=== PATIENT | male | born 1945 | race Caucasian/White ===

== ENCOUNTER 2016-11-08 06:36 | Day surgery (SDC) | payer MEDICARE ==
[~2016-11-08] VITALS: Ht 190.5 cm; Wt 115.7 kg
[2016-11-08] MEDS ORDERED: NIFEDIPINE ER60 MG PO (07:39)
[2016-11-08] MEDS ORDERED: PHOSLO667 MG PO (07:39)
[2016-11-08] MEDS ORDERED: METOPROLOL TAR100 M1 PO (07:39)
[2016-11-08 07:40] LABS: BASOPHILS 0.3 % (0.0-2.0); EOSINOPHILS 2.4 % (0-7); HEMATOCRIT 37.9 % (42.0-54.0); HEMOGLOBIN 12.6 g/dL (13.5-17.5); IMMATURE GRANULOCYTES 0.2 % (0-5); LYMPHOCYTES 33.9 % (15-50); MCH 33.2 pg (26.0-34.0); MCHC 33.2 g/dL (31.0-37.0); MCV 99.7 fL (80.0-100.0); MEAN PLATELET VOLUME 10.9 fL (7.4-10.4); MONOCYTES 6.1 % (2-11); NEUTROPHILS 57.1 % (40-80); PLATELET COUNT 182 10x3/uL (130-400); RDW 12.8 % (11.5-14.5); WBC 11.5 10x3/uL (4.8-10.8)
[2016-11-08] MEDS ORDERED: HYDROCODONE-APA1 TAB PO ×2 (07:40→12:20)
[2016-11-08 07:43] LABS: ANION GAP 18.3 mmol/L (8-16); CALCIUM 7.6 mg/dL (8.5-10.1); CARBON DIOXIDE 24.7 mmol/L (21.0-32.0); CREATININE - SERUM 7.2 mg/dL (0.6-1.3)
[2016-11-08 07:49] LABS: APTT 30.9 SECONDS (22.8-39.4); INR 1.11 (0.85-1.17); PROTIME 14.1 SECONDS (11.6-15.0)
[2016-11-08 07:51] VITALS: Ht 190.5 cm; Wt 115.7 kg
--- NOTE | 2016-11-08 10:56 | NUR ---
PREPPED AND DRAPED FOR FISTULA CREATION
--- NOTE | 2016-11-08 13:47 | NUR ---
DR BANGURA HERE TALKING WITH PT
--- NOTE | 2016-11-08 13:48 | NUR ---
IV DC WITH CATHER TIP INTACT
--- NOTE | 2016-11-13 14:16 | CN ---
PATIENT NAME:GANESH MELLO MEDICAL RECORD: [id number] : 45 LOCATION:[facility] ADMIT DATE: ACCOUNT: [id number] CONSULTING PHYSICIAN: GERRI BANGURA MD REFERRING PHYSICIAN: AVNI GARCIA MD DATE OF CONSULTATION: 11/08/2016 HISTORY OF PRESENT ILLNESS: A 71-year-old gentleman with history of end-stage renal disease status post surgery this morning via Dr. Mcadams. He was noted to have ECG changes with PVCs. Actually talking to his , this has been a problem for several years typically. He first noticed when he was in [facility] for surgery. These are entirely asymptomatic and has never been told he has any cardiovascular history. We are asked to see him concerning his cardiovascular status. PAST MEDICAL HISTORY: Includes: 1. History of renal insufficiency. 2. Obstructive pulmonary disease. 3. Hypertension. 4. PVCs described above. MEDICATIONS: Include nifedipine 60 mg p.o. daily, [place] 10/325 daily, Diazepam 5 t.i.d. p.r.n., metoprolol 50 b.i.d. SOCIAL HISTORY: Smoker, he is able to take care of his ADLs. REVIEW OF SYSTEMS: The patient reports easy bruising but reports no swollen glands. The patient reports no fever, no night sweats, no significant weight gain, no significant weight loss. No significant exercise tolerance. The patient reports no dry eyes, no irritation, no vision change. Patient reports no difficulty hearing and no ear pain. Patient reports no frequent nose bleeds or nose and sinus problems. Patient reports on arm pain on exertion. No shortness of breath while lying down. No history of heart murmur. Patient reports no cough, no wheezing or coughing up blood. Patient reports no abdominal pain, no vomiting. Normal appetite. No diarrhea and not vomiting blood. No nausea and no constipation. Patient reports no incontinence. No difficulty urinating. No hematuria. No increased frequency. Patient reports no muscle aches. No weakness, no arthralgias, no back pain. No swelling of the extremities. Patient reports no abnormal mole, no jaundice, no rashes. Reports no loss of consciousness. No weakness and no numbness. No seizures, dizziness, or headaches. The patient reports no depression, no sleep disturbance, feeling safe in a relationship and no alcohol abuse. Patient reports on fatigue. Reports no runny nose or sinus pressure. No itching, no hives, and no frequent sneezing. PHYSICAL EXAMINATION: GENERAL: Elderly gentleman in no acute distress. HEENT: Normocephalic, atraumatic. NECK: No JVD or bruit. HEART: Regular. LUNGS: العلي clear. ABDOMEN: Soft, nontender. EXTREMITIES: Pulses are preserved, 2+ with no edema. IMPRESSION: Suspect ECG changes with premature ventricular contractions CONSULT REPORT [id number] GANESH MELLO secondary to current surgery, asymptomatic, these are unifocal with appropriate compensatory physiologic pulse. No contraindication to discharge from a cardiac standpoint. TRANSINT:[id number] Voice Confirmation ID: [id number] DOCUMENT ID: [id number] GERRI BANGURA MD at 1416 CC: [id number] DICTATION DATE: 11/08/16 1334 CREATIVE PRODUCER: 11/08/16 1606 [facility] 11/08/16 [address] [place] [address]
--- NOTE | 2016-12-03 11:25 | OP ---
PATIENT NAME: GANESH TRAORE MEDICAL RECORD: [id number] :45 LOCATION:[facility] ADMISSION DATE: SURGEON: FRANKI RICHARDSON MD DATE OF OPERATION: 11/08/2016 PREOPERATIVE DIAGNOSES: End-stage renal disease on chronic hemodialysis via right internal jugular tunneled dialysis catheter and multiple failed prior dialysis AV fistula attempts. POSTOPERATIVE DIAGNOSES: End-stage renal disease on chronic hemodialysis via right internal jugular tunneled dialysis catheter and multiple failed prior dialysis AV fistula attempts. OPERATION PERFORMED: Laparoscopic implantation of a peritoneal dialysis catheter and in addition, creation of a left radiocephalic Merari type arteriovenous fistula. SURGEON: Franki Richardson MD ANESTHESIA: General endotracheal per LINUX ARCHITECT. PREOPERATIVE NOTE: Mr. Traore is a 71-year-old white male patient on dialysis. Referred to me by Dr. Tan for dialysis access. The patient wants to do a home ambulatory peritoneal dialysis and is to have a peritoneal catheter implanted. He also has had a couple of failed attempts at a brachiocephalic and proximal radial artery cephalic arterial venous fistula and still needs an AV fistula for backup for his peritoneal. We hope to accomplish that in addition to implanting his PD catheter today. DESCRIPTION OF PROCEDURE: Under general endotracheal anesthesia per LINUX ARCHITECT, the patient was prepped and draped in a sterile manner and the abdomen was accessed through a small incision in the left upper quadrant with an Optiview XL 5-mm port with 0-degree 5-mm scope within it. Pneumoperitoneum was established and an additional 5-mm port was placed in the left lower quadrant for instrumentation. An incision was placed to the right of the umbilicus and just below it and through that incision, a needle and guidewire were inserted through the abdominal wall and a peelaway dilator introducer was placed. A right-sided swan neck dual cuff coil catheter was inserted and placed in the pelvis and the innermost of the 2 Dacron felt cuffs were placed just at the posterior rectus peritoneum level just barely visible from within the abdomen. Note, the patient had had prior abdominal operations, but had essentially no intra-abdominal adhesions. He does have a very floppy transverse colon which falls well down into his pelvis and there was a floppy sigmoid colon there as well. There is, however, almost no omentum and epiploic fat. The new catheter was then placed in a laterally directed subcutaneous tunnel and through a new exit site leaving the most superficial of the 2 Dacron felt cuffs in the subcutaneous tract. The catheter was irrigated and free flow of fluid confirmed after which it was then heparin locked with heparin 100 units per cc clamped and capped. The insufflated carbon dioxide was allowed to escape and the laparoscopic instrumentation was removed. The incisions were then infiltrated with 0.25% Marcaine with epinephrine and closed with interrupted inverted 3-0 Vicryl and Dermabond glue. The catheter exit site was treated first with Dermabond glue and then Mastisol and quarter inch Steri-Strips were used to secure the catheter. Maxorb AG was then placed over the catheter exit OPERATIVE REPORT [id number] GANESH TRAORE J site and the other incisions and this held in place with Tegaderm and Cavilon skin prep. The catheter was then coiled and placed under a Medipore adhesive dressing. The patient was then reprepped and redraped to expose the left arm for surgery. I examined him with a proximal venous tourniquet in place and after application of nitroglycerin paste topically and found the patient had a good cephalic vein at the wrist and large radial artery and the cephalic vein appears to be patent and continuous with the median cubital vein and basilic vein, which is large. I opted to go ahead with a radiocephalic primary AV fistula rather than the graft or basilic vein translocation. A longitudinal incision was made and hemostasis was obtained discretely with electrocautery and the cephalic vein mobilized and controlled with vascular loops, tributaries were divided between 3-0 Vicryl ligatures. The patient's vein was treated with topical papaverine. The radial artery was then exposed. Branches divided with electrocautery and the vessels controlled with Silastic tapes. The vein was then clamped and divided distally, it was ligated there with 3-0 Vicryl. The end was shortened and bevelled and the vein was flushed and dilated with dilute heparin saline solution and additional topical papaverine was utilized. An end-to-side anastomosis between the vein and artery was then performed with continuous running 7-0 Prolene after flushing the artery proximally and distally with heparin as well. When completed, the suture line was hemostatic and with release of the occluding loops, there was excellent flow established almost immediately in the new fistula. Note that in addition to irrigating the vein before doing the anastomosis, I also explored it gently with coronary artery dilators and noted that I could easily pass a 3.5-mm coronary dilator through the cephalic vein up to almost the antecubital level. The wound was irrigated with Ancef/gentamicin solution and infiltrated sparingly with 0.25% Marcaine with epinephrine. The wound was also treated with an application of fibrillar hemostatic material which was subsequently removed with additional irrigation and the wound was closed with interrupted inverted 3-0 Vicryl and then running intracuticular 4-0 Monocryl and Dermabond glue. The incision was dressed with Maxorb Ag, Tegaderm and Cavilon skin prep. The patient was awakened and taken to the recovery room. Blood loss during the procedure was trivial and unreplaced and all sponges, instruments, and needles were accounted for. No drain was used and no surgical specimen was submitted for histopathology. The patient did have cardiac dysrhythmias, during the operation first and second degree block with PACs though he maintained a normal pressure. We will obtain a cardiology consultation and repeat a 12-lead EKG in the recovery room. PLAN: Unless there is a contraindication from cardiology, the patient will be discharged to home and to continue his home renal diet and medications. He is given a prescription for additional [place] 10/325 #20 one p.o. q. 4 hours p.r.n. pain. He is to have an appointment with [facility] peritoneal dialysis nurses in a week and he is to have an appointment scheduled to return to see me in the office in 2 weeks. He can leave the original operative dressings intact until he sees me at that time. TRANSINT:[id number] Voice Confirmation ID: [id number] DOCUMENT ID: [id number] OPERATIVE REPORT [id number] GANESH TRAORE JAMES MD at 1125 CC: DWAYNE HUBBARD MD, MORRO GODOY MD and AVNI TAN [id number] DICTATION DATE: 11/08/16 1252 FOUNDRY SUPERINTENDANT: 11/08/16 1527 [facility] 11/08/[address] [facility] [address] [place] [address]
== END 2016-11-08 14:30 | disposition home or self-care (01) ==
LOC: D.OPS 06:36
PROVIDERS: Internal Medicine Nephrology
DX: I12.0 Hypertensive chronic kidney disease with stage 5 chronic kidney disease or end stage renal disease (principal); E11.9 Type 2 diabetes mellitus without complications; F17.200 Nicotine dependence, unspecified, uncomplicated; M19.90 Unspecified osteoarthritis, unspecified site; Z99.2 Dependence on renal dialysis; T82.590A Other mechanical complication of surgically created arteriovenous fistula, initial encounter

== ENCOUNTER 2017-02-21 06:39 | Day surgery (SDC) | payer MEDICARE ==
[~2017-02-21] VITALS: Ht 193 cm; Wt 113.4 kg
--- NOTE | ~2017-02-21 | OP ---
PATIENT NAME: GANESH MELLO MEDICAL RECORD: [id number] :45 [facility] AD[facility] DATE: SURGEON: FRANKI RICHARDSON MD DATE OF OPERATION: 02/21/2017 REFERRING PHYSICIAN: Dr. Waqas Tan. PREOPERATIVE DIAGNOSIS: End-stage renal disease, and dependence upon hemodialysis, now with a functioning arteriovenous fistula, no longer requiring his HemoSplit tunneled dialysis catheter. Also, he has a peritoneal dialysis catheter, which he does not like, finds inconvenience and wants removed. DESCRIPTION OF PROCEDURE: Under general anesthesia with LMA per OSTOMY CARE NURSE, the patient is prepped and draped in sterile manner. A transverse incision was made over the palpable PD catheter in the right lower quadrant. Electrocautery was used as well as sharp dissection, the superficial cuff was located and freed from the surrounding subcutaneous tissues and the catheter cut in the external portion with a superficial cuff removed. Dissection deeper revealed that deeper the 2 cuffs within the substance of the rectus muscle and it was freed and the catheter removed. The defect was closed with 2 [id number] 0 Vicryl sutures. The wound was irrigated with Ancef/gentamicin solution and infiltrated with 0.5% Marcaine with epinephrine. Subcutaneous tissues were approximated with 3-0 Vicryl and the skin was closed with a running 4-0 Monocryl and Dermabond glue. It was later dressed with Maxorb Ag, Tegaderm and Cavilon skin prep. This covered also the old PD catheter exit site, which was adjacent and close to this incision. We turned our attention into the HemoSplit catheter. The skin and subcutaneous tissues surrounding the tract of the catheter were infiltrated with lidocaine with epinephrine and some Marcaine and a mt in the skin was made to allow forceps to pass alongside the catheter, blunt dissection was then used for most of the dissection; however, some electrocautery was also used to free the subcutaneous cuff. I noted some purulent matter within the catheter tunnel, superficial to the cuff and it was cultured for aerobic and anaerobic organisms. The catheter was removed and with the patient in reverse Trendelenburg position, pressure along the tract from the right internal jugular vein was held. The site was also closed with a purse-string 3-0 Vicryl suture, which will need to be removed in a few days. That wound was subsequently dressed with Maxorb Ag, Tegaderm and Cavilon skin prep. The patient was awakened and taken to the recovery room in stable condition. Blood loss was insignificant and unreplaced and all sponges, instruments, and needles were accounted for. No drain was used and no surgical specimen was sent for histopathology or gross inspection. We will arrange an appointment for Mr. Mello to see me in my office next week. He is to continue his usual dialysis schedule and his usual home medications and diet. He is given a prescription for 20 tablets of [place] 5/325. He can take one q. 4 hours p.r.n. for pain. TRANSINT:[id number] Voice Confirmation ID: [id number] DOCUMENT ID: [id number] OPERATIVE REPORT [id number] GANESH MELLO JAMES MD CC: [id number] DICTATION DATE: 02/21/17958 ACCOUNT ASSOCIATE: 02/21/171936 [facility] 02/21/17 [facility] [address] [place] [address]
[~2017-02-21 06:39] MED LIST: HYDROCODONE-APA1 TAB PO; METOPROLOL TAR100 M1 PO; NIFEDIPINE ER60 MG PO; PHOSLO667 MG PO
[2017-02-21] MEDS ORDERED: ZANTAC150 MG PO (07:23)
[2017-02-21] MEDS ORDERED: CALCIUM 500 + D1 TAB PO (07:23)
[2017-02-21 07:34] VITALS: Ht 193 cm; Wt 113.4 kg
[2017-02-21] MEDS ORDERED: VALIUM5 MG PO (07:41)
[2017-02-21 07:42] LABS: BASOPHILS 0.5 % (0-2); EOSINOPHILS 2.6 % (0-7); HEMATOCRIT 35.7 % (42.0-54.0); HEMOGLOBIN 11.7 g/dL (13.5-17.5); IMMATURE GRANULOCYTES 0.2 % (0-5); LYMPHOCYTES 38.6 % (15-50); MCH 32.6 pg (26.0-34.0); MCHC 32.8 g/dL (31.0-37.0); MCV 99.4 fL (80.0-100.0); MEAN PLATELET VOLUME 11.3 fL (7.4-10.4); MONOCYTES 5.7 % (2-11); NEUTROPHILS 52.4 % (40-80); PLATELET COUNT 193 10x3/uL (130-400); RBC 3.59 10x6/uL (4.20-6.10); RDW 13.9 % (11.5-14.5); WBC 8.6 10x3/uL (4.8-10.8)
[2017-02-21 07:48] LABS: APTT 31.4 SECONDS (22.8-39.4); INR 1.17 (0.85-1.17); PROTIME 14.8 SECONDS (11.6-15.0)
[2017-02-21 07:51] LABS: ANION GAP 21.3 mmol/L (8-16); CARBON DIOXIDE 22.1 mmol/L (21.0-32.0); CREATININE - SERUM 7.3 mg/dL (0.6-1.3); POTASSIUM - SERUM 3.4 mmol/L (3.5-5.1)
[2017-02-21 08:03] LABS: CALCIUM 6.9 mg/dL (8.5-10.1)
--- NOTE | 2017-02-21 09:35 | NUR ---
NO P.D. CATHETER CULTURES TAKEN
[2017-02-21] MEDS ORDERED: HYDROCODON-ACE1 EAC7 PO (09:46)
--- NOTE | 2017-02-21 15:02 | NUR ---
1120 IV DC WITH CATHER TIP INTACT
== END 2017-02-21 11:30 | disposition home or self-care (01) ==
LOC: D.OPS 06:39
PROVIDERS: Anesthesiology
DX: I12.0 Hypertensive chronic kidney disease with stage 5 chronic kidney disease or end stage renal disease (principal); N18.6 End stage renal disease; Z99.2 Dependence on renal dialysis; F17.200 Nicotine dependence, unspecified, uncomplicated; Z01.812 Encounter for preprocedural laboratory examination

== ENCOUNTER → 2017-03-11 19:31 | Outpatient (CLI) | payer MEDICARE ==
[2017-02-21 07:34] VITALS: BMI 30.5
[~2017-03-11 19:31] MED LIST changes: +CALCIUM 500 + D1 TAB PO; +HYDROCODON-ACE1 EAC7 PO; +VALIUM5 MG PO; +ZANTAC150 MG PO
== END | disposition home or self-care (01) ==
LOC: D.LABREF 19:31
DX: T81.4XXA Infection following a procedure, initial encounter (principal)

== ENCOUNTER 2017-09-18 16:24 | Inpatient (IN) | payer MEDICARE ==
[~2017-09-18] VITALS: Ht 193 cm; Wt 111.6 kg
[2017-09-18 17:15] LABS: BASOPHILS 0.2 % (0-2); EOSINOPHILS 3.4 % (0-7); HEMATOCRIT 36.4 % (42.0-54.0); HEMOGLOBIN 11.7 g/dL (13.5-17.5); LYMPHOCYTES 30.6 % (15-50); MCH 32.6 pg (26.0-34.0); MCHC 32.1 g/dL (31.0-37.0); MCV 101.4 fL (80.0-100.0); MEAN PLATELET VOLUME 11.2 fL (7.4-10.4); MONOCYTES 5.4 % (2-11); NEUTROPHILS 60.4 % (40-80); RBC 3.59 10x6/uL (4.20-6.10); RDW 13.3 % (11.5-14.5); WBC 5.6 10x3/uL (4.8-10.8)
[2017-09-18 17:16] LABS: PLATELET COUNT 112 10x3/uL (130-400)
[2017-09-18 17:24] LABS: ANION GAP 19.2 mmol/L (8-16); CARBON DIOXIDE 24.4 mmol/L (21.0-32.0); CREATININE - SERUM 9.1 mg/dL (0.6-1.3); POTASSIUM - SERUM 3.6 mmol/L (3.5-5.1)
[2017-09-18 17:27] LABS: CALCIUM 6.8 mg/dL (8.5-10.1)
[2017-09-18 17:28] LABS: INR 1.24 (0.85-1.17); PROTIME 15.1 SECONDS (11.6-15.0)
[2017-09-18] MEDS ORDERED: COZAAR50 MG PO (17:35)
[2017-09-18 17:43] VITALS: BP 138/80; BMI 30.2
--- NOTE | 2017-09-18 17:54 | NUR ---
PT ARRIVED TO UNIT A&O RESTING IN BED. PT REQUESTING A NICOTENE PATCH AND STATES HES BEEN TRYING TO QUIT BUT NOTICED HE SMOKED A CIGARETTE ON THE WAY HERE. WILL PAGE RENAL AND OBTAIN ORDER FOR NICOTENE PATCH AND FURTHER ORDERS. WILL ORDER PT A DINNER TRAY AND THEN HE WILL BE NPO AFTER MIDNIGHT. PT VERBALIZED UNDERSTANDING AND DENIES ANY CURRENT QUESTIONS OR CONCERNS. WILL CPOC AND ADMISSION WORK-UP.
--- NOTE | 2017-09-18 18:34 | NUR ---
22 GUAGE TO JEROD X2 STICKS. SL. NO CURRENT NEEDS. WILL CPOC.
[2017-09-18 20:27] VITALS: BP 91/60
--- NOTE | 2017-09-19 00:06 | NUR ---
PT IN BED RESTING AT THIS TIME. WILL CONT TO MONITOR
[2017-09-19 00:33] VITALS: BP 102/76
--- NOTE | 2017-09-19 03:19 | NUR ---
GLOVE PRINTER AT BEDSIDE TO OBTAIN VITALS, CALL LIGHT IN REACH. WILL CONTINUE WITH PLAN OF CARE.
--- NOTE | 2017-09-19 04:01 | NUR ---
PT IN BED RESTING. WILL CONT TO MONITOR
[2017-09-19 04:33] VITALS: BP 94/60
[2017-09-19 05:20] LABS: INR 1.29 (0.85-1.17); PROTIME 15.7 SECONDS (11.6-15.0)
[2017-09-19 05:25] LABS: ANION GAP 22.5 mmol/L (8-16); CARBON DIOXIDE 20.4 mmol/L (21.0-32.0); CREATININE - SERUM 9.9 mg/dL (0.6-1.3); POTASSIUM - SERUM 3.9 mmol/L (3.5-5.1)
[2017-09-19 05:29] LABS: CALCIUM 6.5 mg/dL (8.5-10.1)
[2017-09-19 05:36] LABS: HEMATOCRIT 32.1 % (42.0-54.0); MCH 33.4 pg (26.0-34.0); MCHC 34.3 g/dL (31.0-37.0); NEUTROPHILS 59.1 % (40-80); PLATELET COUNT 103 10x3/uL (130-400); RBC 3.29 10x6/uL (4.20-6.10); RDW 13.4 % (11.5-14.5)
[2017-09-19 05:37] LABS: MCV 97.6 fL (80.0-100.0)
--- NOTE | 2017-09-19 07:15 | NUR ---
REPORT RECEIVED. RR EVEN AND UNLABORED, PT IS ASLEEP. PLACE NAME ON WHITE BOARD, WILL CTM.
--- NOTE | 2017-09-19 08:30 | NUR ---
SPOKE TO YAMILETH DOAN APN ABOUT PT CONDITION. EXPLAINED TO JUST CTM PT BP AND NOTIFY HER IF IT GETS ANY LOWER. WILL CTM.
--- NOTE | 2017-09-19 08:30 | NUR ---
PAYROLL AND BENEFITS ASSISTANT REPORTED LOW BP. RECHECKED PTS BP, CURRENTLY 86/54. WILL PAGE RENAL OIL HEAT TECHNICIAN AOBUT PT CONDITION. PT HAS BEEN RUNNING LOWER, BUT THIS BP IS SIGNIFICANTLY LOWER THAN IT HAS BEEN SINCE ADMISSION.
[2017-09-19 08:33] VITALS: BP 84/55
--- NOTE | 2017-09-19 09:30 | NUR ---
SPOKE TO DR. RICHARDSON ABOUT PT GOING TO SURGERY TODAY. GAVE PRE-OP ORDERS. WILL PUT ORDERS IN. EXPLAINED PLAN TO PT, VEBALIZED UNDERSTANDING. TAKING HIBA CLEANSE BATH. WILL COMPELTE ORDERS.
--- NOTE | 2017-09-19 12:30 | NUR ---
PTS BP PERSISTS TO BE LOW. WILL NOTIFY YAMILETH DOAN RENAL ELECTRONICS TEST ENGINEER.
--- NOTE | 2017-09-19 12:30 | NUR ---
OBTAINED CONSENTS FOR PROCEDURE. PT DENIES FURTHER QUESTIONS OR NEEDS AT THIS TIME. WILL CTM.
[2017-09-19 12:50] VITALS: BP 88/58
--- NOTE | 2017-09-19 13:20 | NUR ---
SPOKE TO ProtAb ABOUT CALCIUM GLUCONATE NOT BEING AVIALABLE. WILL GIVE WHEN AVIALABLE FROM PHARMACY.
--- NOTE | 2017-09-19 13:40 | NUR ---
REPORTED LOW BP TO DR. DICKEY. NEW ORDERS GIVEN. WILL GIVE AND CTM CONDTION AND BP.
[2017-09-19 14:06] VITALS: BMI 29.5
--- NOTE | 2017-09-19 15:16 | NUR ---
SPOKE TO PT REGARDING PROCEDURE BEING MOVED TO TOMORROW. VERBALIZED UNDERSTANDING. ORDERED RENAL TRAY FOR PT. WILL CTM.
--- NOTE | 2017-09-19 15:30 | NUR ---
PTS BP HAS INCREASED TO 110/80. RR EVEN AND UNLABORED, PT REPORTS FEELING "A LITTLE BETTER." WILL CTM.
[2017-09-19 16:22] VITALS: BP 110/80
--- NOTE | 2017-09-19 18:30 | NUR ---
PT SITTING UP ON SIDE OF BED. REQUESTED PRN [place]. WILL GIVE AND GIVE SHIFT REPORT ON PT CONDTION FOR THE DAY.
[2017-09-19 20:59] VITALS: BP 98/62
[2017-09-20] VITALS (35 sets, daily range): BP systolic 86–121; BP diastolic 60–92; Ht 193 cm; Wt 111.6 kg
--- NOTE | 2017-09-20 02:59 | NUR ---
PATIENT IS RESTING IN BED, RR, CALL LIGHT IN REACH. WILL CONTINUE PLAN OF CARE.
--- NOTE | 2017-09-20 07:00 | NUR ---
RECEIVED REPORT. ASSUMED CARE OF PATIENT. CALL LIGHT WITHIN REACH. AWAKE AND ALERT. RESP EVEN AND UNLABORED. NPO FOR THROMBECTOMY OF LEFT AV FISTULA THIS AM. NO DISTRESS. DENIES NEEDS THIS AM.
--- NOTE | 2017-09-20 08:01 | NUR ---
PREOP MEDICATIONS ADMINISTERED AT THIS TIME. SURGERY TEAM AT BEDSIDE.
--- NOTE | 2017-09-20 11:21 | NUR ---
CONSULTED ANETHESIA REGARDING DECREASED BLOOD PRESSURE. PREOP BP 88/58. ESAU SANDERS CRNA AT BEDSIDE. NO FURTHER ORDERS AT THIS TIME. WILL CONTINUE TO MONITOR. BP 90/66 AT 1120.
--- NOTE | 2017-09-20 11:40 | NUR ---
PATIENT RECEIVED BACK TO ROOM 2135 FROM SURGERY. RESTING WITH EYES CLOSED, EASILY AROUSED. CONTINUOUS PULSE OX PLACED ON PATIENT PATIENT KEEP DESTATING TO 89 % WITHOUT O2. O2 AT 3L/NC, O2 SAT 96 %.
--- NOTE | 2017-09-20 11:58 | NUR ---
ALBUMIN INFUSING AT THIS TIME FOR BP 81/46.
--- NOTE | 2017-09-20 12:09 | NUR ---
RESP EVEN AND UNLABORED, 02 SAT 98%, BP 77/51.
--- NOTE | 2017-09-20 12:30 | NUR ---
PATIENT CONTINUES TO HAVE BP 80'S/50'S. MIDODRINE AND ALBUMIN HAVE BEEN ADMINISTERED, NO INCREASE TO BP AT THIS TIME. PROGRAMMER ON FLOOR AND AWARE.
[2017-09-20 12:48] LABS: BASOPHILS 0.2 % (0-2); EOSINOPHILS 0.5 % (0-7); HEMOGLOBIN 11.4 g/dL (13.5-17.5); IMMATURE GRANULOCYTES 0.2 % (0-5); LYMPHOCYTES 12.4 % (15-50); MCH 33.3 pg (26.0-34.0); MCHC 32.6 g/dL (31.0-37.0); MEAN PLATELET VOLUME 11.4 fL (7.4-10.4); MONOCYTES 7.7 % (2-11); PLATELET COUNT 100 10x3/uL (130-400); RBC 3.42 10x6/uL (4.20-6.10); RDW 13.5 % (11.5-14.5)
[2017-09-20 12:49] LABS: MCV 102.3 fL (80.0-100.0); WBC 8.1 10x3/uL (4.8-10.8)
[2017-09-20 13:01] LABS: ANION GAP 22.9 mmol/L (8-16); CARBON DIOXIDE 20.4 mmol/L (21.0-32.0); CREATININE - SERUM 11.3 mg/dL (0.6-1.3); POTASSIUM - SERUM 4.3 mmol/L (3.5-5.1)
[2017-09-20 13:03] LABS: CALCIUM 6.4 mg/dL (8.5-10.1)
--- NOTE | 2017-09-20 13:10 | NUR ---
PATIENT TO BE TRANSFERRED TO ROOM 2310.
--- NOTE | 2017-09-20 19:30 | NUR ---
REPORT RECIEVED. ASSESSMENT COMPLETED. SEE FLOW SHEET FR BARRY DETAILS. DIALYSIS NURSE AT BED SIDE DOING DIALYSIS. PT IS ON LEVO TO TITRATE. POSITIONED FOR COMFORT WILL CONTINUE TO MONITOR.
--- NOTE | 2017-09-20 21:00 | NUR ---
DIALYSIS NURSE STILL AT BED SIDE WILL CONTINUE TO MONITOR.
--- NOTE | 2017-09-20 23:00 | NUR ---
REASSESSMENT COMPLETED. SEE FLOW SHEET FOR FURTHER DETAILS. NO ACUTE CANGES AT THIS TIME. PT POSITIONED FOR COMFORT WILL CONTINUE TO MONITOR.
[2017-09-21] VITALS (75 sets, daily range): BP systolic 79–117; BP diastolic 44–87
--- NOTE | 2017-09-21 01:00 | NUR ---
PT SLEEPING WITH NO SIGNS OF DISTRESS. WILL CONTINUE TO MONITOR.
--- NOTE | 2017-09-21 03:00 | NUR ---
REASSESSMENT COMPLETED AT THIS TIME. NO ACUTE CHNAGES. SEE FLOW SHEET FOR FURTHER DETAILS. PT POSITIONED FOR COMFORT WILL CONTINUE TO MONITOR.
--- NOTE | 2017-09-21 05:00 | NUR ---
PT AWAKE AND VERY RESTLESS STATES HE IS READY TO GO HOME. EDUCATED TO PT WHY HE NEEDS TO STAY HERE SEEMS TO UNDERSTAND. STILL TITRATING LEVO AT THIS TIME. WILL CONTINUE TO MONITOR PT.
[2017-09-21 06:30] LABS: BASOPHILS 0.3 % (0-2); HEMOGLOBIN 11.1 g/dL (13.5-17.5); IMMATURE GRANULOCYTES 0.4 % (0-5); MCH 32.5 pg (26.0-34.0); MCHC 32.6 g/dL (31.0-37.0); MCV 99.4 fL (80.0-100.0); MEAN PLATELET VOLUME 11.4 fL (7.4-10.4); MONOCYTES 8.9 % (2-11); NEUTROPHILS 70.4 % (40-80); PLATELET COUNT 108 10x3/uL (130-400); RBC 3.42 10x6/uL (4.20-6.10); RDW 13.5 % (11.5-14.5)
[2017-09-21 06:41] LABS: ANION GAP 19.9 mmol/L (8-16); CARBON DIOXIDE 21.9 mmol/L (21.0-32.0); CREATININE - SERUM 8.7 mg/dL (0.6-1.3); POTASSIUM - SERUM 3.8 mmol/L (3.5-5.1)
[2017-09-21 06:42] LABS: CALCIUM 6.6 mg/dL (8.5-10.1)
[2017-09-21 06:48] LABS: ALBUMIN 3.2 g/dL (3.4-5.0)
--- NOTE | 2017-09-21 19:30 | NUR ---
Shift assessment complete. Pt is A&O x4 and complains of 9/10 pain effecting his R arm and elbow. PIV levophed infiltrate site on lower R arm noted. Kade tracey is searching for phentolamine SC INJ now. S1S2 audible, HR 85 normal sinus with PVC's noted. He states that he is SOB, O2 sat 89%. Placed 2 L of O2 on at this time, O2 sat is now 96%. Lung sounds clear throughout all lobes. ABD is round and nontender to touch, BS active x4. Instructed pt to use his call light when he needs to get OOB to BSC. Bed alarm on. Radial and pedal pulses palp. Refreshments provided. PRN [place] administered per request. L arm reserve. Fistula noted in L AC area, thrill and bruit heard/felt. PIV to R upper forearm, 22 G, saline locked. He denies any further requests. Will cont with POC.
--- NOTE | 2017-09-21 20:00 | NUR ---
Administered phentolamine SQ. Pt tolerated well. Will cont to monitor.
--- NOTE | 2017-09-21 21:30 | NUR ---
Infiltration site discoloration is slowly fading. Propped R elbow up on pillow and repositioned for comfort. He denies any requests at this time. Will cont with POC.
--- NOTE | 2017-09-21 23:00 | NUR ---
Reassessment complete. Pt is sleepy, but easy to wake. VSS. No further changes noted. He denies any pain at this time. HR 82 bpm normal sinus rhythm with PVC's. Will cont with POC.
[2017-09-22] VITALS (8 sets, daily range): BP systolic 86–116; BP diastolic 53–85
--- NOTE | 2017-09-22 01:00 | NUR ---
Pt resting peacefully at this time. VSS. He does not appear to be in any distress. Will cont with POC.
--- NOTE | 2017-09-22 03:00 | NUR ---
Reassessment complete. Pt denies any pain at this time and states that he is sleeping well. VSS. See flow sheet for changes. Bed in lowest position. Will cont to monitor.
--- NOTE | 2017-09-22 05:00 | NUR ---
Complete bed bath and linen change. Pt states that his arm is hurting and he wants a pain pill. Administered pain pill per request and elevated R arm. Infiltration site is fading, but is still deep purple in color. No further needs at this time. VSS. Will cont with POC.
[2017-09-22 06:13] LABS: BASOPHILS 0.4 % (0-2); EOSINOPHILS 1.8 % (0-7); HEMATOCRIT 33.7 % (42.0-54.0); HEMOGLOBIN 11.2 g/dL (13.5-17.5); IMMATURE GRANULOCYTES 0.2 % (0-5); LYMPHOCYTES 30.3 % (15-50); MCHC 33.2 g/dL (31.0-37.0); MCV 99.4 fL (80.0-100.0); MEAN PLATELET VOLUME 11.1 fL (7.4-10.4); NEUTROPHILS 61.3 % (40-80); PLATELET COUNT 96 10x3/uL (130-400); RBC 3.39 10x6/uL (4.20-6.10); RDW 13.4 % (11.5-14.5); WBC 5.5 10x3/uL (4.8-10.8)
[2017-09-22 06:38] LABS: ANION GAP 21.3 mmol/L (8-16); CARBON DIOXIDE 21.5 mmol/L (21.0-32.0); CREATININE - SERUM 10.2 mg/dL (0.6-1.3); POTASSIUM - SERUM 3.8 mmol/L (3.5-5.1)
[2017-09-22 06:50] LABS: PHOSPHOROUS 10.9 mg/dL (2.5-4.9)
[2017-09-22] MEDS ORDERED: MIDODRINE HCL5 MG PO (07:52)
[2017-09-22 07:54] LABS: PLATELET ESTIMATE DECREASED
--- NOTE | 2017-09-22 07:57 | NUR ---
breakfast tray served. pt talking on phone to family. dr fortune here. dc order received. pt now calling family to report that he is being dc this am.
--- NOTE | 2017-09-23 20:41 | DS ---
PATIENT:GANESH MELLO :45 MEDICAL RECORD: [id number] DISCHARGE SUMMARY ADMISSION DATE: 09/20/17 DISCHARGE DATE: 09/22/17 HOSPITAL COURSE: Mr. Mello is a nice gentleman with a radiocephalic AV fistula, had severe stenosis of the JA and arterial anastomosis with clot in the mid forearm, was opened by Dr. Mcadams. Unfortunately, he developed hypotension post-sedation. We were not able to continue his losartan prescribed by his cut off tender glass for his EF of 20%. He also indicated that he needs a pacemaker. We did have to have him on Levophed to complete dialysis. He was upset and wanted to go home. We did discontinue his Levophed and have mean arterial pressures hovering around 60, but his mental status is excellent. 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 He understands the risk that he can have a stroke, , heart attack, or another clotted access related to low blood pressure. We discharged him to home. He can continue his Valium and hydrocodone per the dialysis unit. Continue Zantac as prescribed previously. I will call his dialysis unit for ProAmatine 10 mg t.i.d. if they are having difficulty with his blood pressure there as well. He will follow up with his cut off tender glass. PHYSICAL EXAMINATION: VITAL SIGNS: He is 98/55. 75 irregular heart beat with frequent PVCs, 18 respiratory rate. GENERAL: He is alert and oriented times 3. HEENT: Normocephalic, atraumatic. Clear nares. Clear throat. NECK: No JVD or thyromegaly. CHEST: Irregular rhythm. S1. LUNGS: Mild decreased breath sounds at the bases. ABDOMEN: Nontender in all 4 quadrants. EXTREMITIES: No appreciable hepatosplenomegaly. DIET: Renal diet. He is also to be on PhosLo, but his calcium is low and phosphorus is high. We did have a good discussion for 10 minutes regarding discontinuing tobacco as he remained in the hospital due to an ejection fraction of 20% or severe congestive heart failure. He has peripheral artery disease as well. Discharged to home and follow up at his dialysis unit. TRANSINT:[id number] Voice Confirmation ID: [id number] DOCUMENT ID: [id number] SPENCER DICKEY MD at 2041 CC: [id number] DICTATION DATE: 09/22/17 0759 BRIM IRONER HAND: 09/23/17 0200 [facility] 09/22/17 [id number] [place] [address]
--- NOTE | 2017-10-03 11:12 | OP ---
PATIENT NAME: GANESH TRAORE MEDICAL RECORD: [id number] :45 LOCATION:D. D.2135 ADMISSION DATE:09/20/17 SURGEON: FRANKI RICHARDSON MD DATE OF OPERATION: 09/20/2017 PREOPERATIVE DIAGNOSES: End-stage renal disease and dependence on hemodialysis and thrombosis of left radiocephalic AV fistula. OPERATION PERFORMED: Fistulogram with pharmaco thrombolysis as well as mechanical thrombolysis thrombectomy and balloon angioplasty and a selective radial artery arteriogram. SURGEON: Franki Richardson MD ANESTHESIA: General with LMA per CONVERTING SUPERVISOR. REFERRING PHYSICIAN: Dr. Randolph. PREOPERATIVE NOTE: Mr. Traore is a 72-year-old white male patient with end-stage renal disease, on chronic hemodialysis with a left radiocephalic Merari AV fistula. He thrombosed that fistula last week and due to excessive business OPC, could not handle the declot and so Dr. Randolph and I had him admitted to the hospital here on 09/18/2017 for me to perform the thrombectomy procedure. Due to OR being overcrowded, I was unable to get him to the operating room promptly. Subsequently, he has had a HemoSplit inserted and has been dialyzed. He is brought to the OR at this time to do the thrombectomy. DESCRIPTION OF PROCEDURE: Under anesthesia in supine position, the patient was prepped and draped in a sterile manner. Using ultrasound guidance, I accessed the AV fistula in an antegrade or distalward direction using micropuncture technique, which led up to placement of a 6-Turkish introducer. I advanced an angled Glidewire and glide catheter distally to the radial artery anastomosis and then into the radial artery and I then performed a selective radial artery arteriogram to rule out thrombosis or complication involving the artery and for control against the possibility of subsequent arterial emboli. The catheter was pulled back into the fistula and 2 mg of Activase were laced into the thrombus. I used then a Moe embolectomy catheter to pull the arterial plug and an AngioJet catheter to lyse and remove thrombus remaining in the body of the graft and venous outflow and through from the arterial end as well. This required a second 6-Turkish introducer in an antegrade direction. Contrast injection was used to visualize in the mid body of the fistula, which demonstrated another stenosis which was subsequently angioplastied with a 7-mm angioplasty balloon, which was also used to dilate a stenosis and eject the arterial segment which was about 90% of diameter reducing lesion and the end result was 0% residual. The area in the mid vein in the mid forearm had an irregularity which was concerning and for which I am going to recommend a followup examination. The venous outflow tract all the way to the right atrium was opened. The patient was fully heparinized for the procedure and this was not reversed. The 6-Turkish introducers were removed and hemostasis obtained at the puncture sites with [id number] 4-0 Prolene. Sterile dressings were applied and the patient awakened and taken to the recovery room in stable condition. Blood loss during the operation was insignificant and unreplaced, and all sponges, instruments, and needles were accounted for. No drain was used and no surgical specimen was submitted for histopathology. OPERATIVE REPORT [id number] GANESH TRAORE PLAN: The patient can be probably discharged today or tomorrow depending on his other medical conditions. I would like him to have a followup fistulogram done at [facility] next Friday to check on the status of his mid forearm level or mid vein stenotic lesion which I dilated today. TRANSINT:[id number] Voice Confirmation ID: [id number] DOCUMENT ID: [id number] FRANKI RICHARDSON MD at 1112 CC: SPENCER RANDOLPH MD [id number] DICTATION DATE: 09/30/17 1346 SET UP AND CHARGER: 09/30/17 1522 DIS IN 09/22/17 [id number] [place] [address]
== END 2017-09-22 12:59 | disposition home or self-care (01) | DRG 252 ==
LOC: OBSVTIME → D.M2 16:24 → D.OPS 16:24 → UNDOADMOB 16:24 → OBSVTIME 16:25 → EDSTATUS 09-19 15:30 → D.ICU 09-20 12:54 → D.M2 09-20 12:54 → D.ICU 09-20 12:54 → D.M2 09-20 14:54 → D.ICU 09-22 10:50 → D.M2 09-22 12:59
PROVIDERS: Internal Medicine Nephrology; Surgery; ADMIT Internal Medicine Nephrology
PROC: 5A1D70Z Performance of Urinary Filtration, Intermittent, Less than 6 Hours Per Day (ICD-10-PCS; 2017-09-19)
PROC: 037C3ZZ Dilation of Left Radial Artery, Percutaneous Approach (ICD-10-PCS; 2017-09-20)
PROC: B31N1ZZ Fluoroscopy of Other Upper Arteries using Low Osmolar Contrast (ICD-10-PCS; 2017-09-20)
PROC: B5181ZZ Fluoroscopy of Superior Vena Cava using Low Osmolar Contrast (ICD-10-PCS; 2017-09-20)
PROC: 02HV33Z Insertion of Infusion Device into Superior Vena Cava, Percutaneous Approach (ICD-10-PCS; 2017-09-20)
PROC: B5181ZA Fluoroscopy of Superior Vena Cava using Low Osmolar Contrast, Guidance (ICD-10-PCS; 2017-09-20)
PROC: B548ZZA Ultrasonography of Superior Vena Cava, Guidance (ICD-10-PCS; 2017-09-20)
PROC: B51W1ZZ Fluoroscopy of Dialysis Shunt/Fistula using Low Osmolar Contrast (ICD-10-PCS; principal; 2017-09-20 08:00)
PROC: 03CC3ZZ Extirpation of Matter from Left Radial Artery, Percutaneous Approach (ICD-10-PCS; 2017-09-20 08:00)
DX: T82.858A Stenosis of other vascular prosthetic devices, implants and grafts, initial encounter (principal); N18.6 End stage renal disease; I13.2 Hypertensive heart and chronic kidney disease with heart failure and with stage 5 chronic kidney disease, or end stage renal disease; Y83.8 Other surgical procedures as the cause of abnormal reaction of the patient, or of later complication, without mention of misadventure at the time of the procedure; E11.22 Type 2 diabetes mellitus with diabetic chronic kidney disease; I50.9 Heart failure, unspecified; Z99.2 Dependence on renal dialysis; I95.9 Hypotension, unspecified; E83.51 Hypocalcemia; Z72.0 Tobacco use